=== PATIENT | female | born 1975 | race Caucasian/White ===

== ENCOUNTER 2024-04-18 09:12 | Emergency (ER) | payer OTHER ==
[~2024-04-18] VITALS: Ht 157.5 cm; Wt 90.7 kg
[2024-04-18 09:26] VITALS: BP 152/87; TEMP 97.7
[2024-04-18] MEDS ORDERED: CETI1TAB9 PO (09:36)
[2024-04-18] MEDS ORDERED: IBUP-1490 PO (09:36)
[2024-04-18 09:44] VITALS: O2SAT 99
== END 2024-04-18 09:45 | disposition home or self-care (01) ==
LOC: ER 09:18
DX: J06.9 Acute upper respiratory infection, unspecified (principal); F17.200 Nicotine dependence, unspecified, uncomplicated; B97.89 Other viral agents as the cause of diseases classified elsewhere

== ENCOUNTER 2024-05-06 16:19 | Emergency (ER) | payer OTHER ==
[~2024-05-06] VITALS: Ht 157.5 cm; Wt 90.7 kg
[~2024-05-06 16:19] MED LIST: CETI1TAB9 PO; IBUP-1490 PO
[2024-05-06 17:05] VITALS: BP 110/71; TEMP 98.6
[2024-05-06] MEDS ORDERED: PRED50TA PO (17:58)
[2024-05-06] MEDS ORDERED: AMOX-430 PO (18:01)
[2024-05-06] MEDS ORDERED: predniSONE 20 MG TABLET ONE (18:02)
[2024-05-06] MEDS: predniSONE 20 MG TABLET PO ONE (18:04)
[2024-05-06] MEDS ORDERED: IPRATROPIUM NEB FS 0.5 MG/2.5 ML AMPUL.NEB ONE (18:14)
[2024-05-06] MEDS ORDERED: ALBUTEROL FS 2.5 MG/3 ML VIAL.NEB ONE (18:14)
[2024-05-06 18:16] VITALS: O2SAT 97
[2024-05-06] MEDS: ALBUTEROL FS 2.5 MG/3 ML VIAL.NEB NEB ONE (18:16)
[2024-05-06] MEDS: IPRATROPIUM NEB FS 0.5 MG/2.5 ML AMPUL.NEB NEB ONE (18:16)
[2024-05-06 18:25] VITALS: O2SAT 98
[2024-05-06 18:52] VITALS: O2SAT 98
== END 2024-05-06 18:52 | disposition home or self-care (01) ==
LOC: ER 17:04
DX: J40 Bronchitis, not specified as acute or chronic (principal); H66.91 Otitis media, unspecified, right ear; R06.2 Wheezing; R09.89 Other specified symptoms and signs involving the circulatory and respiratory systems; F19.10 Other psychoactive substance abuse, uncomplicated; Z79.52 Long term (current) use of systemic steroids
CPT/HCPCS: 99283; 71045; 94640; J7512

== ENCOUNTER 2024-11-12 10:14 | Emergency (ER) | payer OTHER ==
[~2024-11-12] VITALS: Ht 157.5 cm; Wt 99.8 kg
[~2024-11-12 10:14] MED LIST changes: +AMOX-430 PO; +PRED50TA PO
[2024-11-12 10:20] VITALS: BP 138/78; TEMP 98.2; O2SAT 100
[2024-11-12] MEDS ORDERED: BACI500P4 TP (10:38)
== END 2024-11-12 11:15 | disposition home or self-care (01) ==
LOC: ER 10:25
DX: S90.822D Blister (nonthermal), left foot, subsequent encounter (principal); Z48.00 Encounter for change or removal of nonsurgical wound dressing; Z79.52 Long term (current) use of systemic steroids; X58.XXXD Exposure to other specified factors, subsequent encounter

== ENCOUNTER 2025-04-01 09:19 | Emergency (ER) | payer OTHER ==
[~2025-04-01] VITALS: Ht 157.5 cm; Wt 99.8 kg
[~2025-04-01 09:19] MED LIST changes: +BACI500P4 TP
[2025-04-01 09:36] VITALS: BP 145/90; TEMP 98.4
[2025-04-01] MEDS ORDERED: AMOX-430 PO (09:45)
[2025-04-01] MEDS ORDERED: FLUT16SP16 BNOSTRILS (09:45)
[2025-04-01 09:50] VITALS: O2SAT 99
== END 2025-04-01 10:04 | disposition home or self-care (01) ==
LOC: ER 09:42
DX: J32.9 Chronic sinusitis, unspecified (principal); Z79.52 Long term (current) use of systemic steroids